=== PATIENT | male | born 1975 | race Caucasian/White ===

== ENCOUNTER 2019-08-15 00:06 | Emergency (ER) | payer MEDICAID, OTHER ==
[~2019-08-15] VITALS: Ht 157.5 cm; Wt 86.2 kg
[2019-08-15] MEDS ORDERED: PROPOFOL 100 ML ONE (00:50)
[2019-08-15] MEDS ORDERED: PROPOFOL 1,000 MG/100 ML BOTTLE IV ONE (01:30)
[2019-08-15] MEDS: IV NS 0.9% 1,000 ML BAG IV ONE (01:50)
[2019-08-15] MEDS: PROPOFOL 200 MG/20 ML VIAL IV ONE (01:50)
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
[2019-08-15 02:27] VITALS: BP 119/78
== END 2019-08-15 02:27 | disposition home or self-care (01) ==
LOC: ER 00:15
DX: S93.04XA Dislocation of right ankle joint, initial encounter (principal); V49.49XA Driver injured in collision with other motor vehicles in traffic accident, initial encounter; Y93.89 Activity, other specified; Y92.413 State road as the place of occurrence of the external cause; Y99.8 Other external cause status
CPT/HCPCS: 27840; 73610 ×2; 99152; 99285; J3490; J7030; G0500